=== PATIENT | female | born 1960 | race Caucasian/White ===

== ENCOUNTER 2022-01-26 09:12 | Emergency (ER) | payer BC ==
--- OUTSIDE RECORDS SUMMARY | 2022-01-26 09:21 | XMS REPORT | Continuity of Care Document ---
:1960 Author Organization [facility] t Address [address] [place] [address] [address] [place] [address] Care Team Providers Name Role Phone German ALEXIS Attending Clinician Unavailable Problems This patient has no known problems. Allergies, Adverse Reactions, Alerts This patient has no known allergies or adverse reactions. Social History Social Habit Start Date Stop Date Quantity Comments Source Sex Assigned At Female [facility] Smoking Status Start Date Stop Date Source Unknown if ever smoked Access He alth Medications This patient has no known medications. Procedures Procedure Date / Time Performed Performing Clinician [facility] Infectious agent detection 2020-04-12 00:00:00 A [facility] [employer] by nucleic acid (DNA or Encounters Start End Encounter Admission Attending Care Care Encounter Source Date/Time Date/Time Type Type Clinicians Facility Department ID 2020-04-12 2020-04-[address] [facility] [id number] Access 14:15:00 14:15:00 [id number] [facility] [id number] 2020-04-12 2020-04-12 Outpatient [facility] [id number] Access 00:00:00 00:00:00 [facility] 2020-04-12 2020-04-12 Outpatient [facility] [id number] Access 00:00:00 00:00:00 HERB [id number] [facility] [id number] Results Test Description Test Time Test Comments Results Result Comments Source Panel Description: SARS-CoV-2 (COVID-19) RNA [Presence] in 2 05:38:00 Unspecified specimen by ORTIZ with probe detection Test Item Value Reference Range Interpretation Comme nts SARS-CoV-2, ORTIZ (test Not Detected Not Detected Testin g was performed using the code = 90786-9) Aptima SARS- CoV-2 assay.This test was developed a nd its performance characteristics determinedby Devin wood. This test has not been FD A cleared orapproved. Thi s test has been authorized by Adrian LOPEZ under an Emergency UseAu thorization (EUA). This test is on ly authorized for the duration of time the declaration luis felipe t circumstances exist justifyin g theauthorization of the emergenc y use of in vitro diagnostic test s fordetection of SARS-CoV-2 viru s and/or diagnosis of COVID-19 inf ectionunder section 564(b)( 1) of the Act, 21 U.S.C. 360bbb-3 (b)(1), unlessthe authorization i s terminated or revoked sooner. When diagnostic testing is nega tive, the possibility of a falsenegative result should b e considered in the context of a patient'srecent exposures and t he presence of clinical signs and symptomsconsist ent with COVID-19. An individual w ithout symptoms of COVID-19and who is not shedding SARS-CoV-2 viru s would expect to have anegative (not detected) result in this assay.
< br/>Performed by:
Devin MARIE)

[place]
--- NOTE | 2022-01-26 11:12 | RAD REPORT ---
EXAM DESCRIPTION: Sergey Single View01/26/2022 10:17 am CLINICAL HISTORY: Chest pain COMPARISON: none FINDINGS: The lungs appear clear of acute infiltrate. The heart is normal size IMPRESSION: No acute abnormalities displayed
[2022-01-26 12:06] LABS: Absolute Lymphocytes (CBC) 1.6 K/uL (0.7-4.9); Hematocrit 41.8 % (36.0-45.0); Lymphocytes % 21.2 % (15.3-44.8); RBC Red Blood Cell Count 4.78 M/uL (3.86-4.86)
[2022-01-26 12:28] LABS: Protime INR 1.07
[2022-01-26 12:35] LABS: Albumin 4.1 g/dL (3.4-5.0); Bilirubin Direct 0.1 mg/dL (0-0.2); Bilirubin Total 0.6 mg/dL (0.2-1.0); Magnesium 2.3 mg/dL (1.8-2.4); Potassium 4.1 mmol/L (3.5-5.1); Protein, Total 7.7 g/dL (6.4-8.2); Thyroid Stimulating Hormone 1.32 uIU/mL (0.360-3.740); Troponin High Sensitivity 3.3 pg/mL (<58.9)
--- NOTE | 2022-01-26 13:49 | ER ---
Nurse's Notes [facility] Name: Victorina Mckeon Age: 61 yrs Sex: Female : 1960 Arrival Date: 01/26/2022 Time: 09:18 Bed DIS4 Private MD: Diagnosis: Chest pain, unspecified;Palpitations Presentation: 01/26 09:31 Chief complaint: Patient states: Chest pain for approx 2-3 weeks, states that it has ph worsened over the past few days, also reports palpitations, states that pain and palpitations improve w/ activity. Pt appears tearful and anxious in triage, reports increased stress at home. Coronavirus screen: Vaccine status: Patient reports being unvaccinated. Ebola Screen: No symptoms or risks identified at this time. Initial Sepsis Screen: Does the patient meet any 2 criteria? No. Patient's initial sepsis screen is negative. Does the patient have a suspected source of infection? No. Patient's initial sepsis screen is negative. Risk Assessment: Do you want to hurt yourself or someone else? Patient reports no desire to harm self or others. Onset of symptoms was January 26, 2022. 09:31 Method Of Arrival: Ambulatory ph 09:31 Acuity: LEYDI 3 ph Triage Assessment: 09:37 General: Appears in no apparent distress. well groomed, Behavior is cooperative, ph appropriate for age, anxious, Denies fever, feeling ill. Pain: Complains of pain in mid-sternal area Pain does not radiate. Neuro: No deficits noted. Cardiovascular: Reports chest pain, palpitations, Capillary refill < 3 seconds in bilateral fingers Patient's skin is warm and dry. Chest pain quality is pressure, began approx 3 weeks ago is alleviated by activity and stretching. Respiratory: No deficits noted. Derm: Skin is intact, Skin is pink, warm \T\ dry. Musculoskeletal: Circulation, motion, and sensation intact. Range of motion: intact in all extremities. Historical: - Allergies: 09:36 No Known Allergies; ph - PMHx: 09:36 COPD; ph - PSHx: 09:36 None; ph - Immunization history:: Adult Immunizations unknown. - Social history:: Smoking status: Patient denies any tobacco usage or history of. Screenin:09 Abuse screen: Denies threats or abuse. Denies injuries from another. Nutritional ld1 screening: No deficits noted. Tuberculosis screening: No symptoms or risk factors identified. Fall Risk None identified. Assessment: 14:10 Reassessment: see triage assessment Patient denies pain at this time. Patient states ld1 feeling better. Vital Signs: 09:31 BP 152 / 80; Pulse 65; Resp 18; Temp 98.1; Pulse Ox 100% on R/A; Weight 58.97 kg; ph Height 5 ft. 3 in. (160.02 cm); 14:10 BP 149 / 76; Pulse 72; Resp 18; Pulse Ox 100% on R/A; Pain 0/10; ld1 09:31 Body Mass Index 23.03 (58.97 kg, 160.02 cm) ph ED Course: 09:18 Patient arrived in ED. mr 09:36 Brayan Hernández NP is PHCP. pm1 09:36 Tiburcio Anaya DO is Attending Physician. pm1 09:36 Triage completed. ph 09:40 Arm band placed on Patient placed in waiting room, Patient notified of wait time. EKG ph completed in triage. Results shown to MD. 10:18 XRAY Chest (1 view) In Process Unspecified. EDMS 11:58 Basic Metabolic Panel Sent. mb7 11:58 Troponin HS Sent. mb7 11:58 PT-INR Sent. mb7 11:58 CBC with Diff Sent. mb7 11:58 LFT's Sent. mb7 11:58 Magnesium Sent. mb7 11:58 NT PRO-BNP Sent. mb7 11:59 Inserted saline lock: 20 gauge in right antecubital area, using aseptic technique. mb7 Blood collected. 11:59 EKG done, by ED staff, reviewed by Brayan Hernández NP. mb7 14:09 Patient has correct armband on for positive identification. Call light in reach. Side ld1 rails up X2. cryptozoologist on. Pulse ox on. NIBP on. 14:09 No provider procedures requiring assistance completed. IV discontinued, intact, ld1 bleeding controlled, No redness/swelling at site. Patient maintains SpO2 saturation greater than 95% on room air. Administered Medications: 14:06 Drug: Ketorolac 30 mg Route: IVP; Site: right antecubital; ld1 14:06 Follow up: Response: No adverse reaction ld1 14:06 Drug: Pepcid (famotidine) 10 mg Route: IVP; Site: right antecubital; ld1 14:06 Follow up: Response: No adverse reaction ld1 Outcome: 13:48 Discharge ordered by MD. pm1 14:10 Discharged to home ambulatory. ld1 14:10 Condition: stable 14:10 Discharge instructions given to patient, Instructed on discharge instructions, follow up and referral plans. medication usage, Demonstrated understanding of instructions, follow-up care, medications, Prescriptions given X 3. 14:11 Patient left the ED. ld1 Signatures: Dispatcher [employer] Adrianne Chaudhry Patricia, RN RN ph Brayan Hernández, LUDIVINA DUMP TRUCK DRIVER pm1 Nella Wallace RN RN ld1 Adrianne De La Paz mb7
--- NOTE | 2022-01-26 13:49 | EDPHYS ---
Physician Documentation [facility] Name: Victorina Mckeon Age: 61 yrs Sex: Female : 1960 Arrival Date: 01/26/2022 Time: 09:18 Bed DIS4 Private MD: ED Physician Tiburcio Anaya HPI: 01/26 09:39 This 61 yrs old Female presents to ER via Ambulatory with complaints of Chest Pain, pm1 Palpitations. 09:39 The patient or guardian reports chest pain that is located primarily in the mid-sternal pm1 area. Onset: 3 week(s) ago. The pain does not radiate. Associated signs and symptoms: The patient has no apparent associated signs or symptoms, Pertinent positives: palpitations, Pertinent negatives: abdominal pain, dizziness, headache, nausea, shortness of breath, vomiting. The chest pain is described as Vague. Duration: The patient or guardian reports a single episode, that is still ongoing. Modifying factors: The symptoms are alleviated by nothing. the symptoms are aggravated by emotionally stressful situations. Severity of pain: in the emergency department the pain is unchanged. The patient has not experienced similar symptoms in the past. The patient has not recently seen a physician. Historical: - Allergies: 09:36 No Known Allergies; ph - PMHx: 09:36 COPD; ph - PSHx: 09:36 None; ph - Immunization history:: Adult Immunizations unknown. - Social history:: Smoking status: Patient denies any tobacco usage or history of. ROS: 09:39 Constitutional: Negative for fever, chills, and weight loss. pm1 09:39 Respiratory: Negative for shortness of breath, cough, wheezing, and pleuritic chest pain, Abdomen/GI: Negative for abdominal pain, nausea, vomiting, diarrhea, and constipation, Back: Negative for injury and pain, MS/Extremity: Negative for injury and deformity, Skin: Negative for injury, rash, and discoloration, Neuro: Negative for headache, weakness, numbness, tingling, and seizure. 09:39 Cardiovascular: Positive for chest pain, Negative for edema, orthopnea, palpitations. 09:39 All other systems are negative. Exam: 09:39 Constitutional: This is a well developed, well nourished patient who is awake, alert, pm1 and in no acute distress. Head/Face: Normocephalic, atraumatic. 09:39 Back: No spinal tenderness. No costovertebral tenderness. Full range of motion. Skin: Warm, dry with normal turgor. Normal color with no rashes, no lesions, and no evidence of cellulitis. MS/ Extremity: Pulses equal, no cyanosis. Neurovascular intact. Full, normal range of motion. 09:39 Cardiovascular: Exam negative for acute changes, Rate: normal, Rhythm: regular, Pulses: no pulse deficits are appreciated, Heart sounds: normal, normal S1and S2, Edema: is not appreciated. 09:39 Respiratory: Exam negative for acute changes, respiratory distress, shortness of breath, Breath sounds: are clear throughout. 09:39 Abdomen/GI: Exam negative for acute changes, Inspection: abdomen appears normal, Palpation: abdomen is soft and non-tender, in all quadrants. 09:39 Neuro: Exam negative for acute changes, Orientation: is normal, Mentation: is normal, Motor: is normal, moves all fours. Vital Signs: 09:31 BP 152 / 80; Pulse 65; Resp 18; Temp 98.1; Pulse Ox 100% on R/A; Weight 58.97 kg; ph Height 5 ft. 3 in. (160.02 cm); 14:10 BP 149 / 76; Pulse 72; Resp 18; Pulse Ox 100% on R/A; Pain 0/10; ld1 09:31 Body Mass Index 23.03 (58.97 kg, 160.02 cm) ph MDM: 09:59 Patient medically screened. pm1 13:47 Data reviewed: vital signs. Data interpreted: Pulse oximetry: on room air is 100 %. pm1 Interpretation: normal. Counseling: I had a detailed discussion with the patient and/or guardian regarding: the historical points, exam findings, and any diagnostic results supporting the discharge/admit diagnosis, lab results, radiology results, the need for outpatient follow up, a foam machine operator, a family practitioner, a curator of manuscripts, to return to the emergency department if symptoms worsen or persist or if there are any questions or concerns that arise at home. 01/26 09:39 Order name: Basic Metabolic Panel; Complete Time: 12:44 pm1 01/26 09:39 Order name: CBC with Diff; Complete Time: 12:44 pm1 01/26 09:39 Order name: LFT's; Complete Time: 12:44 pm1 01/26 09:39 Order name: Magnesium; Complete Time: 12:44 pm1 01/26 09:39 Order name: NT PRO-BNP; Complete Time: 12:44 pm1 01/26 09:39 Order name: PT-INR; Complete Time: 12:44 pm1 01/26 09:39 Order name: Troponin HS; Complete Time: 12:44 pm1 01/26 09:39 Order name: XRAY Chest (1 view); Complete Time: 12:44 pm1 01/26 09:39 Order name: EKG; Complete Time: 09:41 pm1 01/26 09:39 Order name: Cardiac monitoring pm1 01/26 09:39 Order name: EKG - Nurse/Tech; Complete Time: 11:58 pm1 01/26 09:40 Order name: TSH; Complete Time: 12:44 pm1 01/26 09:39 Order name: IV Saline Lock; Complete Time: 11:58 pm1 01/26 09:39 Order name: Labs collected and sent; Complete Time: 11:58 pm1 01/26 09:39 Order name: O2 Per Protocol; Complete Time: 11:58 pm1 01/26 09:39 Order name: O2 Sat Monitoring; Complete Time: 11:58 pm1 Administered Medications: 14:06 Drug: Ketorolac 30 mg Route: IVP; Site: right antecubital; ld1 14:06 Follow up: Response: No adverse reaction ld1 14:06 Drug: Pepcid (famotidine) 10 mg Route: IVP; Site: right antecubital; ld1 14:06 Follow up: Response: No adverse reaction ld1 Disposition: 21:32 Co-signature as Attending Physician, Tiburcio MOORE was immediately available on-site ms3 in the Emergency Department for consultation in the care of the patient.. Disposition Summary: 01/26/22 13:48 Discharge Ordered Location: Home pm1 Problem: new pm1 Symptoms: have improved pm1 Condition: Stable pm1 Diagnosis - Chest pain, unspecified pm1 - Palpitations pm1 Followup: pm1 - With: Emergency Department - When: As needed - Reason: Worsening of condition Followup: pm1 - With: Private Physician - When: 2 - 3 days - Reason: Recheck today's complaints, Continuance of care, Re-evaluation by your physician Discharge Instructions: - Discharge Summary Sheet pm1 - Nonspecific Chest Pain, Adult pm1 - Palpitations pm1 Forms: - Medication Reconciliation Form pm1 - Thank You Letter pm1 - Antibiotic Education pm1 - Prescription Opioid Use pm1 Prescriptions: - Pepcid 20 mg Oral Tablet - take 1 tablet by ORAL route every 12 hours for 10 days; 20 tablet; Refills: 0, pm1 Product Selection Permitted - Cyclobenzaprine 10 mg Oral Tablet - take 1 tablet by ORAL route every 8 hours As needed; 30 tablet; Refills: 0, pm1 Product Selection Permitted - Diclofenac Sodium 75 mg Oral tablet,delayed release (DR/EC) - take 1 tablet by ORAL route every 12 hours As needed; 30 tablet; Refills: 0, pm1 Product Selection Permitted Signatures: Dispatcher [employer] EDKarishma Funes, RN RN ph Brayan Hernández NP SHIPBUILDING DRAFTSPERSON pm1 Tiburcio Anaya DO DO ms3 Nella Wallace RN RN ld1
[2022-01-26] MEDS ORDERED: KETOROLAC 30 MG/ML INJ ONE (14:08)
[2022-01-26] MEDS ORDERED: FAMOTIDINE 20 MG/2 ML VIAL IV ONE (14:08)
[2022-01-26 17:02] VITALS: TEMP 98.1; O2SAT 100
[2022-01-26 17:03] VITALS: BP 149/76
--- NOTE | 2022-01-27 09:00 | EKG ---
Test Date: 2022-01-26 Test Time: 09:35:24 Hand Splitter: MB MEASUREMENT RESULTS: Intervals: Rate: 58 VT: 186 QRSD: 74 QT: 410 QTc: 402 [place]: P: 38 VT: 186 QRS: -38 T: 43 INTERPRETIVE STATEMENTS: Sinus bradycardia Left axis deviation Pulmonary disease pattern Abnormal ECG No previous ECG available for comparison Electronically Signed On 01-27-22 08:58:23 CDT by Taurus Vidal
== END 2022-01-26 14:11 | disposition home or self-care (01) ==
LOC: ER 09:12
DX: R07.9 Chest pain, unspecified (principal); R00.2 Palpitations; J44.9 Chronic obstructive pulmonary disease, unspecified
CPT/HCPCS: 36415; 71045; 80048; 80076; 83735; 83880; 84443; 84484; 85025; 85610; 93005; 96374; 96375; 99285; J3490